=== PATIENT | female | born 1990 | race Caucasian/White ===

== ENCOUNTER 2021-02-02 09:57 | Emergency (ER) | payer SELFPAY ==
[~2021-02-02] VITALS: Ht 154.9 cm; Wt 50.9 kg
--- NOTE | 2021-02-02 10:54 | PHYS DOC ---
General Adult EDM: Chief Complaint: VAGINAL BLEEDING HPI: HPI: Patient is a 30 year old female with no significant medical history presenting today complaining of 9 out of 10 abdominal pain described as cramping and intermittent worse on sitting up in bed on laying on her back with vaginal bleeding, symptoms began yesterday. Patient states she did not have a menstrual cycle in December, she states her cycles usually come on the of the month. She states her cycle began yesterday. She states she is not bleeding more than normal but she has abdominal pain and back pain. Patient denies any chance she is , she states she tied her tubes years ago. Denies any vomiting but reports nausea. Denies any fever. Surface Miner line was used for Amharic Review of Systems: Review of Systems: Constitutional: Denies fever or chills. [] Eyes: Denies change in visual acuity. [] HENT: Denies nasal congestion or sore throat. [] Respiratory: Denies cough or shortness of breath. [] Cardiovascular: Denies chest pain or edema. [] GI: Reports abdominal cramping, nausea, denies vomiting, bloody stools or diarrhea. [] : Denies dysuria. [] Musculoskeletal: Denies back pain or joint pain. [] Integument: Denies rash. [] Neurologic: Denies headache, focal weakness or sensory changes. [] Psychiatric: Denies depression or anxiety. [] Heart Score: C/O Chest Pain: N/A Risk Factors: Risk Factors: DM, Current or recent (<one month) smoker, HTN, HLP, family history of CAD, obesity. Risk Scores: Score 0 - 3: 2.5% MACE over next 6 weeks - Discharge Home Score 4 - 6: 20.3% MACE over next 6 weeks - Admit for Clinical Observation Score 7 - 10: 72.7% MACE over next 6 weeks - Early Invasive Strategies Current Medications: Current Medications Medications (Trade) Dose Ordered Sig/Gayatri Start Time Stop Time Status Last Admin Dose Admin Acetaminophen (Tylenol) 1,000 mg 1X ONCE 02/02/21 11:00 02/02/21 11:01 Ondansetron HCl (Zofran) 4 mg 1X ONCE 02/02/21 11:00 02/02/21 11:01 Sodium Chloride 1,000 ml @ 1,000 mls/hr 1X ONCE 02/02/21 11:00 02/02/21 11:59 Allergies: Allergies: Allergies Coded Allergies Type Severity Reaction Last Updated Verified No Known Drug Allergies 02/02/21 No Physical Exam: PE: Constitutional: Well developed, well nourished, no acute distress, non-toxic appearance. [] HENT: Normocephalic, atraumatic, bilateral external ears normal, oropharynx moist, no oral exudates, nose normal. [] Eyes: PERRLA, EOMI, conjunctiva normal, no discharge. [] Neck: Normal range of motion, no tenderness, supple, no stridor. [] Cardiovascular:Heart rate regular rhythm, no murmur [] Lungs & Thorax: Bilateral breath sounds clear to auscultation [] Abdomen: Bowel sounds normal, soft, no tenderness, no masses, no pulsatile masses. [] Pelvic exam External pelvic is normal, cervix is visualized, no CMT, no adnexal tenderness, small amount of bright red blood in the vaginal vault. Skin: Warm, dry, no erythema, no rash. [] Back: No tenderness, no CVA tenderness. [] Extremities: No tenderness, no cyanosis, no clubbing, ROM intact, no edema. [] Neurologic: Alert and oriented X 3, normal motor function, normal sensory function, no focal deficits noted. [] Psychologic: Affect normal, judgement normal, mood normal. [] EKG: EKG: [] Radiology/Procedures: Radiology/Procedures: [] Course & Med Decision Making: Course & Med Decision Making Pertinent Labs and Imaging studies reviewed. (See chart for details) This is a 30-year-old female patient presented to the ED today with vaginal bleeding abdominal pain and back pain, symptoms began yesterday. Beta-hCG less than 1. CBC, CMP with no acute findings, UA positive for UTI. Patient has dysfunctional uterine bleeding. Provided OB for follow-up. Discharged on cephalexin for UTI. Provided return precautions and discharged in stable condition. OTC pain relievers recommended for pain. Werner Disclaimer: Werner Disclaimer: This electronic medical record was generated, in whole or in part, using a voice recognition dictation system. Departure Departure Impression: Primary Impression: Dysfunctional uterine bleeding Additional Impression: Urinary tract infection Qualified Codes: N39.0 - Urinary tract infection, site not specified Disposition: HOME / SELF CARE / HOMELESS Condition: STABLE Referrals: CHAPO PAULA MD follow up in 1-2 weeks Patient Instructions: Urinary Tract Infection, Uterine Bleeding, Dysfunctional, [id number] Additional Instructions: You were evaluated in the emergency room for dysfunctional uterine bleeding. You also have urinary tract infection. Take the prescribed antibiotics until completed. Take the prescribed pain medicine as needed for pain. Follow-up with the [facility] provided or your own doctor in 1 week. Scripts Naproxen (NAPROXEN) 500 Mg Tablet 1 TAB PO BID for pain, #20 TAB 0 Refills Prov: MASSIMO ZUNIGA APRN 02/02/21 Prochlorperazine Maleate (Compazine) 10 Mg Tablet 1 TAB PO Q6HRS, #21 TAB 0 Refills Prov: MASSIMO ZUNIGA APRN 02/02/21 Cephalexin (CEPHALEXIN) 500 Mg Tablet 1 TAB PO BID, #14 TAB Prov: MASSIMO ZUNIGA APRN 02/02/21 MASSIMO ZUNIGA APRN Feb 02, 2021 10:54
[2021-02-02 10:56] LABS: BASO % 0 % (0-3); EOS % 0 % (0-3); HEMATOCRIT 40.4 % (36.0-47.0); HEMOGLOBIN 14.1 g/dL (12.0-15.5); LYMPH # 1.3 x10^3/uL (1.0-4.8); LYMPH % 31 % (24-48); MEAN CORPUSCULAR HEMOGLOBIN 33 pg (25-35); MEAN CORPUSCULAR HGB CONC 35 g/dL (31-37); MEAN CORPUSCULAR VOLUME 93 fL (79-100); MONO # 0.4 x10^3/uL (0.0-1.1); MONO % 8 % (0-9); NEUT # 2.5 x10^3/uL (1.8-7.7); NEUT % 61 % (31-73); PLATELET COUNT 293 x10^3/uL (140-400); RED BLOOD COUNT 4.33 x10^6/uL (3.50-5.40); RED CELL DISTRIBUTION WIDTH 13.8 % (11.5-14.5); WHITE BLOOD COUNT 4.2 x10^3/uL (4.0-11.0)
[2021-02-02] MEDS ORDERED: ONDANSETRON PF 4 MG/2 ML VIAL. IVP ONE (11:00)
[2021-02-02] MEDS ORDERED: IV NORMAL SALINE 1000ML BAG 1,000 ML IV ONE (11:00)
[2021-02-02] MEDS ORDERED: ACETAMINOPHEN 500 MG TABLET PO ONE (11:00)
[2021-02-02 11:03] LABS: BILIRUBIN,URINE NEGATIVE (NEG); NITRITE,URINE NEGATIVE (NEG); PH,URINE 7.5 (<5.0-8.0); PROTEIN,URINE NEGATIVE (NEG-TRACE); UROBILINOGEN,URINE 0.2 mg/dL (0.2 mg/dL)
[2021-02-02 11:10] LABS: CLARITY,URINE CLOUDY; COLOR,URINE AMBER
[2021-02-02 11:11] LABS: RBC,URINE TNTC /HPF (0-2)
[2021-02-02 11:12] LABS: BACTERIA,URINE MODERATE /HPF (0-FEW)
[2021-02-02 11:17] LABS: CALCIUM 9.1 mg/dL (8.5-10.1); CREATININE 0.7 mg/dL (0.6-1.0); POTASSIUM 3.9 mmol/L (3.5-5.1)
[2021-02-02 11:22] LABS: ALBUMIN 4.1 g/dL (3.4-5.0); TOTAL BILIRUBIN 0.7 mg/dL (0.2-1.0); TOTAL PROTEIN 8.3 g/dL (6.4-8.2)
[2021-02-02 11:59] VITALS: BP 112/75
[2021-02-02] MEDS ORDERED: cefTRIAXone IV Push 1 GM VIAL. IVP ONE (12:15)
[2021-02-02] MEDS ORDERED: KETOROLAC 30 MG/ML VIAL. IVP ONE (12:15)
[2021-02-02] MEDS ORDERED: CEPH500T PO (12:22)
[2021-02-02] MEDS ORDERED: NAPR-514 PO (12:22)
[2021-02-02] MEDS ORDERED: PROC10TA57 PO (12:22)
== END 2021-02-02 12:30 | disposition home or self-care (01) ==
LOC: ER 09:57
DX: N93.8 Other specified abnormal uterine and vaginal bleeding (principal); N39.0 Urinary tract infection, site not specified
CPT/HCPCS: 36415; 80053; 81001; 84702; 85025; 87086; 96361; 96374; 96375; 99285; J0696; J1885; J2405; J7030